=== PATIENT | female | born 1960 | race African-American/Black ===

== ENCOUNTER → 2017-02-13 | Outpatient (CLI) | payer MEDICARE, MEDICAID | LOC: RAD 08:55 | PROVIDERS: ATTEND Specialist | DX: E04.1 Nontoxic single thyroid nodule (principal) | CPT/HCPCS: 76536 ==

== ENCOUNTER 2017-03-04 08:59 | Outpatient (CLI) | payer MEDICARE, MEDICAID ==
[~2017-03-04 08:59] MED LIST: FERRIC CARBOXYMALTOSE 750 MG in NORMAL SALINE 250 ML IV PRN; NORMAL SALINE 250 ML IV PRN
[2017-03-04 10:29] VITALS: BP 120/70
== END 2017-03-04 10:25 | disposition home or self-care (01) ==
LOC: II 08:59 → 5TH 09:02 → II 10:25
PROVIDERS: ATTEND Specialist
PROC: 3E033GC Introduction of Other Therapeutic Substance into Peripheral Vein, Percutaneous Approach (ICD-10-PCS; principal; 2017-03-04)
DX: D50.9 Iron deficiency anemia, unspecified (principal); K90.9 Intestinal malabsorption, unspecified
CPT/HCPCS: 96367; J7050; J1439; 96374

== ENCOUNTER → 2017-03-04 | Day surgery (SDC) | payer MEDICARE, MEDICAID | LOC: RAD 12:10 | PROVIDERS: ATTEND Specialist | PROC: 0GBH3ZX Excision of Right Thyroid Gland Lobe, Percutaneous Approach, Diagnostic (ICD-10-PCS; principal; 2017-03-04) | DX: E04.1 Nontoxic single thyroid nodule (principal); Z85.3 Personal history of malignant neoplasm of breast | CPT/HCPCS: 96374; 88173 ×2; 76942; 60100; J7050; J1439; 96367 ==

== ENCOUNTER 2017-03-11 08:52 | Outpatient (CLI) | payer MEDICARE, MEDICAID ==
[2017-03-11 09:12] VITALS: BP 170/89
== END 2017-03-11 10:38 | disposition home or self-care (01) ==
LOC: II 08:52 → 5TH 08:53 → II 10:38
PROVIDERS: ATTEND Specialist
PROC: 3E033GC Introduction of Other Therapeutic Substance into Peripheral Vein, Percutaneous Approach (ICD-10-PCS; principal; 2017-03-11)
DX: D50.9 Iron deficiency anemia, unspecified (principal); K90.9 Intestinal malabsorption, unspecified
CPT/HCPCS: 96365; J7050; J1439; 96374

== ENCOUNTER 2017-04-30 05:48 | Inpatient (IN) | payer MEDICARE, MEDICAID ==
[2017-04-25 10:21] LABS: HEMATOCRIT 35.5 % (36.0-47.0); HEMOGLOBIN 11.7 g/dL (12.0-15.5); HGB HCT DIFFERENCE -0.4; MEAN CORPUSCULAR HEMOGLOBIN 30.2 pg (27.0-33.4); MEAN CORPUSCULAR HGB CONC 33.1 g/dL (32.0-36.0); MEAN CORPUSCULAR VOLUME 91 fl (80-97); RED BLOOD COUNT 3.89 10^6/uL (3.72-5.28); RED CELL DISTRIBUTION WIDTH 15.9 % (11.5-14.0); WHITE BLOOD COUNT 3.8 10^3/uL (4.0-10.5)
[2017-04-25 10:55] LABS: ANION GAP 9 (5-19); BLOOD UREA NITROGEN 26 mg/dL (7-20); CALCIUM 9.2 mg/dL (8.4-10.2); CARBON DIOXIDE 27 mmol/L (22-30); CHLORIDE 105 mmol/L (98-107); CREATININE RESULT 0.95 mg/dL (0.52-1.25); GLUCOSE 73 mg/dL (75-110); POTASSIUM 4.4 mmol/L (3.6-5.0)
[~2017-04-30 05:48] MED LIST changes: +CEFAZOLIN 1 GM/D5W RTU 1 GM/50 ML RTUPB IV PRN; -FERRIC CARBOXYMALTOSE 750 MG in NORMAL SALINE 250 ML IV PRN; +LACTATED RINGERS 1000 ML IV PRN; +LIDOCAINE 0.5% INJ-PF (5 MG/ML) 50 ML SDV SUBCUT PRN; -NORMAL SALINE 250 ML IV PRN
[2017-04-30] MEDS ORDERED: MICROFIBRILLAR COLLAGEN 1 GM PACK ONE (06:44)
[2017-04-30] MEDS ORDERED: HYDROMORPHONE HCL INJ/PF 2 MG/ML AMPULE ONE (07:15)
[2017-04-30] MEDS ORDERED: FENTANYL CITRATE INJ/PF 250 MCG/5 ML AMPULE ONE (07:15)
[2017-04-30] MEDS ORDERED: PROPOFOL INJ 200 MG/20 ML VIAL IV ONE (07:16)
[2017-04-30] MEDS ORDERED: MIDAZOLAM 2 MG/2 ML INJ ONE (07:16)
[2017-04-30] MEDS ORDERED: IBUPROFEN INJ 800 MG/8 ML VIAL IV ONE (07:16)
[2017-04-30] MEDS ORDERED: ONDANSETRON HCL INJ/PF 4 MG/2 ML SDV ONE (07:16)
[2017-04-30] MEDS ORDERED: MEPERIDINE HCL/PF INJ 25 MG/1 ML DISP.SYRIN IV PRN (08:18)
[2017-04-30] MEDS ORDERED: DIPHENHYDRAMINE HCL 50 MG/ML VIAL IV PRN (08:18)
[2017-04-30] MEDS ORDERED: FENTANYL CITRATE INJ/PF 100 MCG/2 ML AMPUL IV PRN ×3 (08:18)
[2017-04-30] MEDS ORDERED: ONDANSETRON HCL INJ/PF 4 MG/2 ML SDV IV PRN ×2 (08:18→11:04)
--- NOTE | 2017-04-30 11:03 | Operative Report ---
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 SURGEON: KOBI KELLEY NURSERY SUPERVISOR: DAVID dotson ANESTHESIA: GA TISSUE REMOVED OR ALTERED: Right and left thyroid lobes COMPLICATIONS: None ESTIMATED BLOOD LOSS: Scant I signed the next discharge orders we can do to expedite be appreciat INTRAOPERATIVE FINDINGS: See below PROCEDURE: The patient was evaluated in the preop holding area with the patient's neck was marked for a standard transcervical incision. The patient was taken to the operating room where general anesthesia was induced. Arms were placed in the tucked position and the neck extended for maximum cervical exposure. The patient was placed in a slight reverse Trendelenburg position. Surgical plan and surgical timeout were conducted. A standard 5-1/2 cm curvilinear incision was made approximately 1 fingerbreadth inferior to the cricoid cartilage. Superior and inferior skin flaps were raised with subcutaneous tissue and platysma muscle. Strap muscles were then divided in the midline. Because the tumor involves the right thyroid lobe, the right thyroid lobectomy was performed first. Fortunately the strap muscles elevated off of the anterior surface of the right thyroid without any evidence of invasion or fibrosis. Using retraction laterally, the right lobe was drawn medially, and loose areolar tissue removed from the anterior and lateral surface of the thyroid lobe. There was no middle thyroid vein. We turned our attention to the inferior pole. Attachments were taken down between right angle and clips. We now divided the right lobe from the left lobe along the isthmus which was normal size and thickness. We now turned our attention to the right upper pole and all attachments were taken very close to the gland. Now we worked in a circumferential fashion with the right lobe suspended in mid position so as to take down all additional attachments. We did see the right upper parathyroid gland and it was preserved throughout the dissection. The recurrent laryngeal nerve was not definitively identified; we did not come across any tissue resembling neurologic structures. The right inferior parathyroid gland was felt to be in a cluster of fatty tissue which was left undisturbed. Of note there was no evidence of metastatic disease, nor enlarged lymph nodes in this compartment. The branches to the inferior thyroid artery supplying the gland were taken close to the gland. Eventually the gland was removed completely from the trachea. Of note there was some fibrosis at the site of the ligament of Rich. However for the most part the posterior surface of the right lobe came off of the trachea uneventfully. The specimen was labeled with a long suture the lateral position short suture in the superior position and all clips removed. The specimen was sent for provisional interpretation by Dr. Cesar Duong, pathologist. He stated that the tumor appeared to be completely circumscribed, however the capsular status could not be ascertained in terms of invasion. Therefore, given the stability of the patient, and the above findings, we proceeded with complete thyroidectomy. Surgeon change position and we began elevating the strap muscles off of the left lobe of the gland. This was a normal-appearing gland by visual inspection as well as ultrasonography preoperatively. The gland came off of the trachea uneventfully. Inferior pole vessels were taken between right angle clamp and clips. The superior pole branches were taken down in a similar fashion. The left upper parathyroid gland was contained in a sheath of fatty tissue and it was left undisturbed. The left recurrent laryngeal nerve was not definitively identified. This was a normal sized left lobe and it came up and into the operating field without difficulty. Small branches of the inferior thyroid artery were taken with clips. Final attachments were freed off the ligament of Rich and the specimen was similarly labeled with a long suture in the lateral position short suture in superior position. It was sent to pathology for permanent analysis. The left neck operative field was free of any bleeding; Avitene was placed in the recess of the wound The right neck was reinspected and a small clip was applied to a very fine bleeding site right on the cricoid muscle. Thereafter no further bleeding identified. Avitene placed in the recess of the wound Patient was taken out of cervical extension. We felt the operation was complete. Sponge and counts are correct. Strap muscles approximated with a 2- 0 Vicryl, and the platysma and skin closed in 1 purchase with 3-0 Vicryl suture. Neck approximated with Dermabond glue. Postop procedure well, extubated and taken recovery in stable condition SEVEN Whiteside assisted with wound exposure, first assisting as a another general surgeon was not available, and closure of the wound.
[2017-04-30] MEDS ORDERED: OXYCODONE-ACETAMINOPHEN 5-325 MG TABLET PO PRN (11:04)
[2017-04-30] MEDS ORDERED: MORPHINE SULFATE 10 MG/ML INJ IV PRN (11:04)
[2017-04-30] MEDS ORDERED: RINGERS SOLUTION,LACTATED 1,000 ML IV PRN ×2 (11:04→11:07)
[2017-04-30] MEDS ORDERED: KETOROLAC TROMETHAMINE INJ/PF 30 MG/1 ML SDV IV PRN (11:05)
[2017-04-30] MEDS ORDERED: ACETAMINOPHEN 325 MG TABLET PO PRN (18:21)
[2017-04-30] MEDS ORDERED: CALCIUM CARBONATE 500 MG TABLET PO ONE (20:00)
[2017-04-30] MEDS: TOLTERODINE TARTRATE 1 MG TABLET PO SCH (21:18)
[2017-04-30] MEDS: PREGABALIN 75 MG CAPSULE PO SCH (21:19)
[2017-04-30] MEDS: LANSOPRAZOLE 30 MG TAB.RAP.DR PO SCH (21:35)
[2017-04-30] MEDS ORDERED: TRAZODONE HCL 50 MG TABLET PO ONE (22:00)
[2017-05-01] MEDS: PREGABALIN 75 MG CAPSULE PO SCH ×2 (09:28→21:20)
[2017-05-01] MEDS: GABAPENTIN 300 MG CAPSULE PO SCH (09:28)
[2017-05-01] MEDS: TOLTERODINE TARTRATE 1 MG TABLET PO SCH ×2 (09:29→21:21)
[2017-05-01] MEDS: TRIAMTERENE/HYDROCHLOROTHIAZIDE 37.5-25 MG TABLET PO SCH (09:29)
[2017-05-01] MEDS ORDERED: (PENDING PHARMACY ID) (Esomeprazole Mag Trihydrate [Nexium] 40 MG) PO SCH (10:00)
[2017-05-01] MEDS ORDERED: (PENDING PHARMACY ID) (Cholecalciferol (Vitamin D3) [Vitamin D3] 50,000 UNIT) PO SCH (10:00)
[2017-05-01] MEDS ORDERED: CALCITRIOL 0.25 MCG CAPSULE PO SCH (10:00)
[2017-05-01] MEDS ORDERED: ERGOCALCIFEROL (VITAMIN D2) 50000 UNIT (1.25 MG) CAPSULE PO SCH (10:00)
[2017-05-01] MEDS ORDERED: LANSOPRAZOLE 30 MG TAB.RAP.DR PO SCH (10:00)
[2017-05-01] MEDS ORDERED: ONDANSETRON HCL INJ/PF 4 MG/2 ML SDV IV PRN (10:06)
[2017-05-01] MEDS ORDERED: CALCIUM CARBONATE 500 MG TABLET PO ONE (10:30)
[2017-05-01] MEDS: CALCIUM CARBONATE 500 MG TABLET PO SCH (16:45)
[2017-05-01] MEDS ORDERED: TRAZODONE HCL 50 MG TABLET PO SCH ×2 (18:00→22:00)
[2017-05-01] MEDS: LANSOPRAZOLE 30 MG TAB.RAP.DR PO SCH (18:04)
[2017-05-01] MEDS ORDERED: CALCIUM GLUCONATE 2,000 MG in DEXTROSE 5%-WATER 100 ML IV ONE (19:00)
[2017-05-01] MEDS ORDERED: CALCITRIOL 0.25 MCG CAPSULE PO ONE (19:00)
[2017-05-02] MEDS: CALCIUM CARBONATE 500 MG TABLET PO SCH (08:30)
[2017-05-02] MEDS ORDERED: LEVOTHYROXINE SODIUM 0.15 MG TABLET PO ONE (08:30)
[2017-05-02] MEDS: PREGABALIN 75 MG CAPSULE PO SCH (09:51)
[2017-05-02] MEDS: TRIAMTERENE/HYDROCHLOROTHIAZIDE 37.5-25 MG TABLET PO SCH (09:51)
[2017-05-02] MEDS: GABAPENTIN 300 MG CAPSULE PO SCH (09:52)
[2017-05-02] MEDS: TOLTERODINE TARTRATE 1 MG TABLET PO SCH (09:52)
[2017-05-02] MEDS ORDERED: LEVOTHYROXINE SODIUM 0.15 MG TABLET PO SCH (10:00)
[2017-05-02] MEDS ORDERED: CALCITRIOL 0.25 MCG CAPSULE PO SCH (10:00)
[2017-05-02 11:06] VITALS: BP 142/80
--- NOTE | 2017-05-08 08:19 | DISCHARGE SUMMARY E ---
Discharge Summary NAME: THIERNO BUTLER : 1960 AGE: 56Y ADMITTED: 04/30/2017 DISCHARGED: 05/02/2017 REASON FOR ADMISSION: Multinodular goiter with probable papillary carcinoma. SUMMARY OF HOSPITALIZATION: The patient is a 56-year-old -[place] female brought into ambulatory surgery for total thyroidectomy. The procedure was performed by Dr. Clarke. The patient had an uneventful postoperative course. Her calcium level did drop, but responded to p.o. calcium gluconate, IV calcium gluconate, and Rocaltrol. Her radha was 7.4 on 05/01/2017. By the afternoon of 05/02/2017, she was feeling fine and ready for discharge home. FINAL DIAGNOSES: 1. Multinodular goiter. 2. Right papillary thyroid carcinoma status post total thyroidectomy. 3. Postoperative hypocalcemia, corrected. DISPOSITION: Patient will be discharged home in the care of her family. Follow up with Dr. Clarke in approximately 1 week, take p.o. and pain medication, Synthroid 150 mcg p.o. q. day, Rocaltrol 0.5 mcg p.o. q. day and calcium gluconate 2 g p.o. b.i.d. DICTATING PHYSICIAN: KOBI CLARKE M.D. [id number] PHY#: [id number] ID: [id number] JOB#: [id number] ACCT: [id number] cc:KOBI CLARKE M.D. >
== END 2017-05-02 11:41 | disposition home or self-care (01) | DRG 627 ==
LOC: INOR 05:48 → 2N 11:59
PROVIDERS: ADMIT Surgery; ATTEND Surgery
PROC: 0GTK0ZZ Resection of Thyroid Gland, Open Approach (ICD-10-PCS; principal; 2017-04-30 07:30)
DX: C73 Malignant neoplasm of thyroid gland (principal); I10 Essential (primary) hypertension; E04.2 Nontoxic multinodular goiter; E83.51 Hypocalcemia; M19.90 Unspecified osteoarthritis, unspecified site; K21.9 Gastro-esophageal reflux disease without esophagitis; Z80.0 Family history of malignant neoplasm of digestive organs; K44.9 Diaphragmatic hernia without obstruction or gangrene; Z98.84 Bariatric surgery status; Z90.710 Acquired absence of both cervix and uterus; Z90.49 Acquired absence of other specified parts of digestive tract; Z96.653 Presence of artificial knee joint, bilateral
CPT/HCPCS: 320; 36415; 80048; 82310; 84132; 85027; 88307; 88331; 88341; 88342; J0610; J0690; J1170; J1741; J2250; J2270; J2405; J2704; J3010; J3490; J7120

== ENCOUNTER → 2017-05-03 | Outpatient (CLI) | payer MEDICARE, MEDICAID | LOC: LAB 09:46 | PROVIDERS: ATTEND Surgery | DX: E83.51 Hypocalcemia (principal) | CPT/HCPCS: 36415; 82310 ==

== ENCOUNTER → 2017-05-07 | Outpatient (CLI) | payer MEDICARE, MEDICAID | LOC: OD 08:22 | PROVIDERS: ATTEND Surgery | DX: E89.0 Postprocedural hypothyroidism (principal) | CPT/HCPCS: 36415; 82310 ==

== ENCOUNTER → 2017-06-10 | Outpatient (CLI) | payer MEDICARE, MEDICAID ==
[2017-06-10 12:03] LABS: FREE T3 3.29 pg/mL (2.77-5.27)
[2017-06-10 12:17] LABS: THYROID STIMULATING HORMONE 2.37 uIU/mL (0.47-4.68)
== END ==
LOC: OD 10:33
PROVIDERS: ATTEND Surgery
DX: E04.1 Nontoxic single thyroid nodule (principal)
CPT/HCPCS: 36415; 82310; 84439; 84443; 84481

== ENCOUNTER 2020-07-06 08:16 | Outpatient (CLI) | payer MEDICARE, MEDICAID ==
[~2020-07-06 08:16] MED LIST changes: -CEFAZOLIN 1 GM/D5W RTU 1 GM/50 ML RTUPB IV PRN; +IRON DEXTRAN COMPLEX 25 MG in NORMAL SALINE 100 ML IV PRN; +IRON DEXTRAN COMPLEX 25 MG in SYRINGE, DISPOSABLE, 1 EACH IV PRN; +IRON DEXTRAN COMPLEX 775 MG in NORMAL SALINE 500 ML IV PRN; -LACTATED RINGERS 1000 ML IV PRN; -LIDOCAINE 0.5% INJ-PF (5 MG/ML) 50 ML SDV SUBCUT PRN; +NORMAL SALINE 250 ML IV PRN
[2020-07-06 10:00] VITALS: BP 131/86
== END 2020-07-06 14:00 | disposition home or self-care (01) ==
LOC: II 08:16 → 5TH 08:18 → II 14:00
PROVIDERS: ATTEND Internal Medicine Hematology & Oncology
DX: D50.9 Iron deficiency anemia, unspecified (principal); K90.9 Intestinal malabsorption, unspecified
CPT/HCPCS: 96365; 96366; 96375; J1750; J7040; J3490; J7050

== ENCOUNTER 2020-07-13 07:59 | Outpatient (CLI) | payer MEDICARE, MEDICAID ==
[2020-07-13] MEDS ORDERED: NORMAL SALINE 250 ML IV PRN (08:00)
[2020-07-13] MEDS ORDERED: IRON DEXTRAN COMPLEX 800 MG in NORMAL SALINE 500 ML IV PRN (08:00)
[2020-07-13 09:11] VITALS: BP 136/64
== END 2020-07-13 13:05 | disposition home or self-care (01) ==
LOC: II 07:59 → 5TH 08:00 → II 13:05
PROVIDERS: ATTEND Internal Medicine Hematology & Oncology
DX: D50.9 Iron deficiency anemia, unspecified (principal); K90.9 Intestinal malabsorption, unspecified
CPT/HCPCS: 96365; 96366; J1750; J7040